=== PATIENT | male | born 1970 | race Caucasian/White ===

== ENCOUNTER 2017-04-02 21:06 | Emergency (ER) | payer MEDICARE ==
[~2017-04-02] VITALS: Ht 188 cm; Wt 88.0 kg
[~2017-04-02 21:06] MED LIST: (None)3.5 GM OP; AMITRIPTYLIN100 MG PO; AMITRIPTYLIN50 MG OR; AMOXIL500 MG OR; AVELOX400 MG OR; AVONEX30 MCG IM; CHANTIX CONTINUI1 MG PO; CIPROFLOXACN500 MG PO; DARVOCET N-100100 - OR; ELAVIL50 MG OR; FIORICET 50-3001 CAP PO; FIORICET PO; GENTAMICIN SULF5 ML OP; IBUPROFEN800 MG OR; LOPID600 MG PO; LORTAB 1010 MG PO; LORTAB 5 OR; LORTAB 7.57.5 MG PO; LORTAB5 PO; METFORMIN500 M2 PO; METFORMIN500 MG PO; NAPROSYN500 MG OR; OXYCODONE HCL5 MG PO; TAMSULOSIN HCL0.4 MG PO; ZITHROMAX250 MG PO; ZOFRAN ODT8 MG PO; [UNRECOGNIZED DRUG - OTHER] IJ
[2017-04-02] MEDS ORDERED: [UNRECOGNIZED DRUG - OTHER] IM (21:45)
[2017-04-02] MEDS ORDERED: UNK BP MED PO (21:46)
[2017-04-02] MEDS ORDERED: MECLIZINE25 MG PO (21:46)
[2017-04-02] MEDS ORDERED: AMITRIPTYLIN25 MG PO (21:47)
[2017-04-02] MEDS ORDERED: [UNRECOGNIZED DRUG - OTHER] (21:49)
[2017-04-02 21:57] LABS: IMMATURE GRANULOCYTES 0.6 % (0.0-1.0); MEAN CORPUSCULAR HGB 30.4 pG CALC (26.0-32.0); MEAN CORPUSCULAR HGB CONC 34.2 g/L CALC (32.0-36.0); NEUT# 3.07 thou/uL (1.82-7.42); RED BLOOD COUNT 4.27 mill/uL (4.70-6.10); RED CELL DISTRI WIDTH 13.1 % (11.5-15.5)
[2017-04-02 22:12] LABS: ALBUMIN 4.8 g/dL (3.2-5.0); ALKALINE PHOSPHATASE 41 u/l (38-126); ANION GAP 19 (6-22 (CALC)); BILIRUBIN, TOTAL 0.8 mg/dL (0.0-1.4); BUN 23 mg/dL (9-20); BUN/CREATININE RATIO 23 (12-20 (CALC)); CALCIUM 10.1 mg/dL (8.4-10.2); CARBON DIOXIDE 30 mmol/l (22-30); CHLORIDE 99 mmol/l (95-108); GFR > 60 ML/MIN (>=60 (CALC)); GFR FOR AFR.AMER. > 60 ML/MIN (>=60 (CALC)); GLUCOSE 97 mg/dL (75-110); POTASSIUM 4.3 mmol/l (3.5-5.1); SGOT/AST 34 u/l (17-59); SGPT/ALT 38 u/l (21-72); SODIUM 143 mmol/l (137-146); TOTAL PROTEIN 8.1 g/dL (6.3-8.2)
[2017-04-02] MEDS ORDERED: FIORICET PO (22:33)
[2017-04-02 23:00] VITALS: BP 119/90
== END 2017-04-02 23:00 | disposition home or self-care (01) ==
LOC: ED 21:06
PROVIDERS: Emergency Medicine
DX: R51 Headache (principal); G35 Multiple sclerosis

== ENCOUNTER 2017-07-14 06:34 | Day surgery (SDC) | payer MEDICARE ==
[~2017-07-14] VITALS: Ht 188 cm; Wt 88.5 kg
[~2017-07-14 06:34] MED LIST changes: +AMITRIPTYLIN25 MG PO; +AMLODIPINE5 MG PO; +HYDROCO/APAP1 TA9 PO; +MECLIZINE25 MG PO; +PREDNISONE50 MG PO; +UNK BP MED PO; +[UNRECOGNIZED DRUG - OTHER]; +[UNRECOGNIZED DRUG - OTHER] IM
[2017-07-14 08:52] VITALS: BP 134/96
== END 2017-07-14 09:02 | disposition home or self-care (01) ==
LOC: ENDO 06:34
PROVIDERS: ATTEND Surgery
PROC: 0DJD8ZZ Inspection of Lower Intestinal Tract, Via Natural or Artificial Opening Endoscopic (ICD-10-PCS; principal; 2017-07-14)
DX: Z12.11 Encounter for screening for malignant neoplasm of colon (principal); G35 Multiple sclerosis; E55.9 Vitamin D deficiency, unspecified; Z87.891 Personal history of nicotine dependence

== ENCOUNTER 2018-03-22 20:40 | Emergency (ER) | payer OTHER, MEDICARE ==
[~2018-03-22] VITALS: Ht 188 cm; Wt 86.3 kg
[2018-03-22] MEDS ORDERED: ATORVASTATIN CA40 MG PO (21:06)
[2018-03-22 21:10] LABS: HEMATOCRIT 42.9 % (39.0-50.0); HEMOGLOBIN 14.6 g/dl (14.0-18.0); IMMATURE GRANULOCYTES 0.3 % (0.0-5.0); MEAN CELL VOLUME 88.3 fL CALC (80.0-100.0); NEUT# 3.46 thou/uL (1.82-7.42); RED BLOOD COUNT 4.86 mill/uL (4.70-6.10); RED CELL DISTRI WIDTH 12.9 % (11.5-15.5)
[2018-03-22 21:31] LABS: ALBUMIN 4.6 g/dL (3.2-5.0); ALKALINE PHOSPHATASE 51 u/l (38-126); ANION GAP 15 (6-22 (CALC)); BILIRUBIN, TOTAL 0.9 mg/dL (0.0-1.4); BUN 19 mg/dL (9-20); BUN/CREATININE RATIO 19 (12-20 (CALC)); CARBON DIOXIDE 27 mmol/l (22-30); CHLORIDE 106 mmol/l (95-108); GFR > 60 ML/MIN (>=60 (CALC)); GFR FOR AFR.AMER. > 60 ML/MIN (>=60 (CALC)); POTASSIUM 3.5 mmol/l (3.5-5.1); SGOT/AST 29 u/l (17-59); SGPT/ALT 53 u/l (21-72); SODIUM 145 mmol/l (137-146); TOTAL PROTEIN 7.8 g/dL (6.3-8.2)
[2018-03-22] MEDS ORDERED: NAPROSYN500 MG PO (22:12)
[2018-03-22] MEDS ORDERED: FLEXERIL PO (22:12)
[2018-03-22 22:20] VITALS: BP 139/91
== END 2018-03-22 22:20 | disposition home or self-care (01) | DRG 552 ==
LOC: ED 20:40
PROVIDERS: Emergency Medicine
DX: S13.9XXA Sprain of joints and ligaments of unspecified parts of neck, initial encounter (principal); R07.89 Other chest pain; V49.50XA Passenger injured in collision with unspecified motor vehicles in traffic accident, initial encounter

== ENCOUNTER 2018-03-27 02:14 | Emergency (ER) | payer OTHER, MEDICARE ==
[~2018-03-27] VITALS: Ht 188 cm; Wt 83.6 kg
[~2018-03-27 02:14] MED LIST changes: +ATORVASTATIN CA40 MG PO; +FLEXERIL PO; +NAPROSYN500 MG PO
[2018-03-27 03:32] VITALS: BP 129/70
== END 2018-03-27 03:30 | disposition home or self-care (01) | DRG 605 ==
LOC: ED 02:14
DX: S20.212A Contusion of left front wall of thorax, initial encounter (principal); V49.50XA Passenger injured in collision with unspecified motor vehicles in traffic accident, initial encounter

== ENCOUNTER 2018-06-18 11:49 | Emergency (ER) | payer MEDICARE ==
[~2018-06-18] VITALS: Ht 188 cm; Wt 85.0 kg
[2018-06-18] MEDS ORDERED: METRONIDAZOL500 MG PO (13:11)
[2018-06-18] MEDS ORDERED: LOTRISONE CREAM15 GM EX (13:11)
[2018-06-18 13:30] VITALS: BP 129/77
== END 2018-06-18 13:30 | disposition home or self-care (01) ==
LOC: ED 11:49
DX: L30.4 Erythema intertrigo (principal); R10.32 Left lower quadrant pain

== ENCOUNTER → 2018-08-18 | Outpatient (REF) | payer MEDICARE ==
[~2018-08-18] MED LIST changes: +LOTRISONE CREAM15 GM EX; +METRONIDAZOL500 MG PO
== END | disposition home or self-care (01) ==
LOC: LAB 10:00
PROVIDERS: ATTEND Internal Medicine
DX: R68.89 Other general symptoms and signs (principal)

== ENCOUNTER 2018-10-28 14:53 | Emergency (ER) | payer MEDICARE ==
[~2018-10-28] VITALS: Ht 188 cm; Wt 90.0 kg
[2018-10-28] MEDS ORDERED: AUGMENTIN875TAB PO (16:15)
[2018-10-28 16:20] VITALS: BP 136/84
== END 2018-10-28 16:34 | disposition home or self-care (01) ==
LOC: ED 14:53
DX: J32.9 Chronic sinusitis, unspecified (principal); R25.3 Fasciculation; E11.9 Type 2 diabetes mellitus without complications; I10 Essential (primary) hypertension

== ENCOUNTER 2019-05-23 10:57 | Emergency (ER) | payer MEDICARE ==
[~2019-05-23] VITALS: Ht 188 cm; Wt 88.0 kg
[~2019-05-23 10:57] MED LIST changes: +AUGMENTIN875TAB PO
[2019-05-23] MEDS ORDERED: AMOX/K CLAV875 M1 PO (11:36)
[2019-05-23] MEDS ORDERED: FLEXERIL5 M1 PO (12:08)
[2019-05-23] MEDS ORDERED: MEDDOSEPAK PO (12:08)
[2019-05-23 12:28] VITALS: BP 121/82
== END 2019-05-23 12:28 | disposition home or self-care (01) ==
LOC: ED 10:57
DX: S86.812A Strain of other muscle(s) and tendon(s) at lower leg level, left leg, initial encounter (principal)

== ENCOUNTER 2019-08-01 | Emergency (ER) | payer MEDICARE ==
[~2019-08-01] MED LIST changes: +AMOX/K CLAV875 M1 PO; +FLEXERIL5 M1 PO; +MEDDOSEPAK PO
== END 2019-08-01 21:16 | disposition home or self-care (01) ==
DX: Z76.0 Encounter for issue of repeat prescription (principal); E11.9 Type 2 diabetes mellitus without complications; I10 Essential (primary) hypertension; Z79.84 Long term (current) use of oral hypoglycemic drugs; Z79.891 Long term (current) use of opiate analgesic

== ENCOUNTER 2021-07-21 12:12 | Emergency (ER) | payer MEDICARE ==
[~2021-07-21] VITALS: Ht 188 cm; Wt 81.6 kg
[2021-07-21 14:43] VITALS: BP 99/65
== END 2021-07-21 14:43 | disposition home or self-care (01) ==
LOC: ED 12:12
DX: U07.1 COVID-19 (principal); I10 Essential (primary) hypertension; E11.9 Type 2 diabetes mellitus without complications; G35 Multiple sclerosis; Z87.442 Personal history of urinary calculi; Z79.84 Long term (current) use of oral hypoglycemic drugs

== ENCOUNTER 2022-09-02 02:51 | Emergency (ER) | payer MEDICARE ==
[~2022-09-02] VITALS: Ht 188 cm; Wt 99.0 kg
[2022-09-02] VITALS (13 sets, daily range): BP systolic 121–200; BP diastolic 86–127
[2022-09-02 03:26] LABS: BASO% 0.7 % (0-3); EOS% 8.1 % (0-8); HEMATOCRIT 46.4 % (39.0-50.0); HEMOGLOBIN 14.8 g/dl (14.0-18.0); IMMATURE GRANULOCYTES 0.2 % (0.0-5.0); LYMPH% 25.4 % (15-41); MEAN CELL VOLUME 93.4 fL CALC (80.0-100.0); MEAN CORPUSCULAR HGB 29.8 pG CALC (26.0-32.0); MEAN CORPUSCULAR HGB CONC 31.9 g/dL CAL (32.0-36.0); MONO% 12.3 % (2-13); NEUT# 3.05 thou/uL (1.82-7.42); NEUT% 53.3 % (42-76); RED BLOOD COUNT 4.97 mill/uL (4.70-6.10); RED CELL DISTRI WIDTH 13.9 % (11.5-15.5)
[2022-09-02 03:57] LABS: ALBUMIN 4.8 g/dL (3.2-5.0); ALKALINE PHOSPHATASE 55 u/l (38-126); ANION GAP 11 (6-22 (CALC)); BILIRUBIN, TOTAL 0.6 mg/dL (0.2-1.3); BUN 21 mg/dL (9-20); BUN/CREATININE RATIO 18 (12-20 (CALC)); CARBON DIOXIDE 30 mmol/l (22-30); CHLORIDE 105 mmol/l (95-108); CREATININE 1.2 mg/dL (0.7-1.3); GFR FOR AFR.AMER. > 60 ML/MIN (>=60 (CALC)); GFR OTHER RACES > 60 ML/MIN (>=60 (CALC)); SGOT/AST 41 u/l (17-59); SODIUM 142 mmol/l (137-146); TOTAL PROTEIN 7.8 g/dL (6.3-8.2)
[2022-09-02] MEDS ORDERED: TORADOL PO (05:29)
[2022-09-02] MEDS ORDERED: CEPHALEXIN500 MG PO (05:29)
== END 2022-09-02 05:56 | disposition home or self-care (01) ==
LOC: ED 02:51
PROVIDERS: Emergency Medicine
DX: N13.2 Hydronephrosis with renal and ureteral calculous obstruction (principal); I10 Essential (primary) hypertension; E11.9 Type 2 diabetes mellitus without complications

== ENCOUNTER 2022-09-08 18:54 | Emergency (ER) | payer MEDICARE ==
[2022-09-08] VITALS (7 sets, daily range): BP systolic 139–149; BP diastolic 95–104
[~2022-09-08] VITALS: Ht 188 cm; Wt 88.4 kg
[~2022-09-08 18:54] MED LIST changes: +CEPHALEXIN500 MG PO; +TORADOL PO
[2022-09-08 20:02] LABS: URINE BLOOD DIPSTICK LARGE (NEGATIVE); URINE COLOR BROWN; URINE GLUCOSE - DIPSTICK NEGATIVE (NEGATIVE); URINE KETONE NEGATIVE (NEGATIVE); URINE LEUK ESTERASE NEGATIVE (NEGATIVE); URINE PH 6.5 (4.5-8.0); URINE PROTEIN - DIPSTICK 100 mg/dL (NEG-TRACE); URINE SPECIFIC GRAVITY >=1.030
[2022-09-08 20:04] LABS: URINE BILIRUBIN - DIPSTICK SMALL (NEGATIVE)
[2022-09-08 20:05] LABS: URINE NITRITE - DIPSTICK POSITIVE (Negative)
[2022-09-08 20:12] LABS: URINE AMORPH SEDIMENT MANY hpf (NONE-FER); URINE RBC TNTC RBC/hpf (0-5)
[2022-09-08] MEDS ORDERED: VIBRAMYCIN100 M2 PO (22:14)
== END 2022-09-08 22:36 | disposition home or self-care (01) ==
LOC: ED 18:54
PROVIDERS: Family Medicine
DX: N45.1 Epididymitis (principal); R31.9 Hematuria, unspecified; I10 Essential (primary) hypertension; E11.9 Type 2 diabetes mellitus without complications; G35 Multiple sclerosis; Z87.442 Personal history of urinary calculi; Z79.4 Long term (current) use of insulin

== ENCOUNTER 2022-11-29 19:11 | Emergency (ER) | payer MEDICARE ==
[~2022-11-29] VITALS: Ht 188 cm; Wt 83.0 kg
[~2022-11-29 19:11] MED LIST changes: +VIBRAMYCIN100 M2 PO
[2022-11-29] MEDS ORDERED: BACTRIM DS1 TAB PO (20:07)
[2022-11-29] MEDS ORDERED: LORTAB 1010 MG PO (20:07)
[2022-11-29] MEDS ORDERED: KEFLEX500 MG PO (20:07)
[2022-11-29 20:14] VITALS: BP 124/80
== END 2022-11-29 20:20 | disposition home or self-care (01) ==
LOC: ED 19:11
PROC: 0H96XZZ Drainage of Back Skin, External Approach (ICD-10-PCS; principal; 2022-11-29)
DX: L02.212 Cutaneous abscess of back [any part, except buttock and flank] (principal); B95.2 Enterococcus as the cause of diseases classified elsewhere; E11.9 Type 2 diabetes mellitus without complications; I10 Essential (primary) hypertension; G35 Multiple sclerosis; Z79.84 Long term (current) use of oral hypoglycemic drugs

== ENCOUNTER 2022-12-01 13:24 | Emergency (ER) | payer MEDICARE ==
[~2022-12-01] VITALS: Ht 188 cm; Wt 84.0 kg
[~2022-12-01 13:24] MED LIST changes: +BACTRIM DS1 TAB PO; +KEFLEX500 MG PO
[2022-12-01 14:18] VITALS: BP 117/76
[2022-12-01 14:34] VITALS: BP 117/76
== END 2022-12-01 14:46 | disposition home or self-care (01) ==
LOC: ED 13:24
DX: Z48.01 Encounter for change or removal of surgical wound dressing (principal); I10 Essential (primary) hypertension; E11.9 Type 2 diabetes mellitus without complications; G35 Multiple sclerosis; Z79.84 Long term (current) use of oral hypoglycemic drugs

== ENCOUNTER 2023-01-25 12:54 | Emergency (ER) | payer MEDICARE ==
[~2023-01-25] VITALS: Ht 188 cm; Wt 83.9 kg
[2023-01-25] MEDS ORDERED: KEFLEX500 MG PO (13:27)
[2023-01-25 13:43] VITALS: BP 119/82
== END 2023-01-25 13:43 | disposition home or self-care (01) ==
LOC: ED 12:54
PROC: 0HQFXZZ Repair Right Hand Skin, External Approach (ICD-10-PCS; principal; 2023-01-25)
DX: S61.411A Laceration without foreign body of right hand, initial encounter (principal); I10 Essential (primary) hypertension; E11.9 Type 2 diabetes mellitus without complications; G35 Multiple sclerosis; W29.8XXA Contact with other powered hand tools and household machinery, initial encounter

== ENCOUNTER 2024-01-17 10:26 | Emergency (ER) | payer MEDICARE ==
[~2024-01-17] VITALS: Ht 188 cm; Wt 90.7 kg
[~2024-01-17 10:26] MED LIST changes: +AMITIZA8 MCG PO; +BOOST PO; +EXCEDRIN TENSION HEA PO; +WELLBUTRIN XL300 MG PO; +[UNRECOGNIZED DRUG - OTHER] PO
[2024-01-17 10:34] VITALS: BP 115/83
[2024-01-17 10:45] VITALS: BP 118/86
[2024-01-17] MEDS ORDERED: DULCOLAX10 MG RE (10:55)
[2024-01-17] MEDS ORDERED: CITRATE OF MEGNESIA PO (10:55)
[2024-01-17 11:00] VITALS: BP 109/87
== END 2024-01-17 11:11 | disposition home or self-care (01) ==
LOC: ED 10:26
DX: K59.00 Constipation, unspecified (principal); I10 Essential (primary) hypertension; E11.9 Type 2 diabetes mellitus without complications; G35 Multiple sclerosis; Z72.0 Tobacco use; Z79.84 Long term (current) use of oral hypoglycemic drugs